=== PATIENT | female | born 1990 | race African-American/Black ===

== ENCOUNTER 2021-05-21 00:39 | Emergency (ER) | payer OTHER ==
[~2021-05-21] VITALS: Ht 165.1 cm; Wt 75.0 kg
[~2021-05-21 00:39] MED LIST: FERR-72 PO; PREN1TAB80 PO
[2021-05-21 01:07] LABS: COVID AG,FIA SOURCE NASOPHARYNGEAL
[2021-05-21 02:00] VITALS: BP 115/64
== END 2021-05-21 03:21 | disposition home or self-care (01) ==
LOC: EMS 00:40
DX: J02.9 Acute pharyngitis, unspecified (principal); R19.7 Diarrhea, unspecified; Z20.822 Contact with and (suspected) exposure to COVID-19; F17.210 Nicotine dependence, cigarettes, uncomplicated; Z90.49 Acquired absence of other specified parts of digestive tract
CPT/HCPCS: 87426; 99283; U0003